=== PATIENT | female | born 1955 | race American Indian/Alaskan Native ===

== ENCOUNTER 2017-05-08 01:09 | Emergency (ER) | payer SELFPAY ==
[2017-05-08 01:10] VITALS: BMI 35.1
[2017-05-08 01:23] VITALS: BP 144/90; PULSE 98; RESP 18; TEMP 98.1; O2SAT 97
[2017-05-08] MEDS ORDERED: Tetanus/Diphtheria Toxoids 0.5 ml Syringe IM ONE ×2 (02:08→02:18)
--- NOTE | 2017-05-08 02:43 | C.PDOC ---
History Of Present Illness 62 year old female who presents to the ER after a piece of the ceiling fell on the right side of her head and right shoulder. Denies LOC, headache, or vomiting. - HPI Time Seen by Provider: 05/08/17 01:47 Chief Complaint (Nursing): Trauma History Per: Patient History/Exam Limitations: no limitations Onset/Duration Of Symptoms: Hrs Injury Occurred (Timing): Just Before Arrival Location Of Injury: Right: Head, Shoulder Recent travel outside of the [place]: No Past Medical History Reviewed: Historical Data, Nursing Documentation, Vital Signs Vital Signs: Last Vital Signs Temp 98.1 F 05/08/17 01:18 Pulse 98 H 05/08/17 01:18 Resp 18 05/08/17 01:18 BP 144/90 05/08/17 01:18 Pulse Ox 97 05/08/17 05:00 - Medical History PMH: Asthma Surgical History: No Surg Hx Family History: States: Unknown Family Hx - Social History Hx Alcohol Use: No Hx Substance Use: No - Immunization History Hx Tetanus Toxoid Vaccination: No Hx Influenza Vaccination: No Hx Pneumococcal Vaccination: No Review Of Systems ENT: Positive for: Ear Pain Gastrointestinal: Negative for: Vomiting Musculoskeletal: Positive for: Shoulder Pain Neurological: Negative for: Weakness, Numbness, Other (LOC) Physical Exam - Physical Exam Appears: Non-toxic Skin: Warm, Dry Head: Atraumatic, Normacephalic Eye(s): bilateral: Normal Inspection, PERRL, EOMI Ear(s): Left: Normal, Right: Other (3 superficial abrasions to external right auricle. No laceration for active bleeding) Nose: Normal, No Tenderness Oral Mucosa: Moist Neck: Normal ROM, No Midline Cervical Tenderness, No Paracervical Tenderness, Supple, Other (Excoriation to right neck) Chest: Symmetrical, No Tenderness Cardiovascular: Rhythm Regular, No Murmur Respiratory: Normal Breath Sounds, No Rales, No Rhonchi, No Wheezing Gastrointestinal/Abdominal: Soft, No Tenderness Extremity: Normal ROM (x4), No Tenderness, No Deformity, No Swelling, Other ( Excoriations to right forearm) Extremity: Bilateral: Normal Color And Temperature Neurological/Psych: Oriented x3, Normal Speech, Normal Cognition ED Course And Treatment O2 Sat by Pulse Oximetry: 97 (Room air) Pulse Ox Interpretation: Normal Progress Note: Motrin and tetanus vaccination administered. On reevaluation, patient's pain as improved, will discharge home with head injury instructions and to return to the ER if patient has any vomiting, headache, dizziness, change in mental status, or other associated symptoms. Laceration - Laceration Repair Rt auricle Wound Length (In cm): 1.5 combined Description Of Wound: Linear, Clean Wound Cleansed With: Sterile Saline Wound Closure: Skin Glue (dermabond) Wound Complexity: Simple (Pt tolerated well) Disposition Counseled Patient/Family Regarding: Diagnosis, Need For Followup, Rx Given - Disposition Disposition: HOME/ ROUTINE Disposition Time: 02:40 Condition: STABLE Additional Instructions: Please follow up with PMD Take meds as directed Keep right ear dry for 2 days Return to ER if severe headache, dizziness, vomiting, weakness, lethargy or worse Prescriptions: Cyclobenzaprine [Cyclobenzaprine HCl] 10 mg PO HS #7 tab Ibuprofen [Motrin] 600 mg PO Q6H #20 tab Instructions: Contusion in Adults (ED), Skin Adhesive Care (ED) Forms: [employer] (Vietnamese) Print Language: MONEGASQUE - Clinical Impression Clinical Impression: Abrasion of right ear, Contusion - Scribe Statement The provider has reviewed the documentation as recorded by the Scribjenna Shukla All medical record entries made by the Ericaibe were at my direction and personally dictated by me. I have reviewed the chart and agree that the record accurately reflects my personal performance of the history, physical exam, medical decision making, and the department course for this patient. I have also personally directed, reviewed, and agree with the discharge instructions and disposition.
== END 2017-05-08 03:03 | disposition home or self-care (01) ==
LOC: C.ER 01:09
DX: S00.431A Contusion of right ear, initial encounter (principal); W22.8XXA Striking against or struck by other objects, initial encounter; Y93.9 Activity, unspecified; Y92.009 Unspecified place in unspecified non-institutional (private) residence as the place of occurrence of the external cause; Z23 Encounter for immunization

== ENCOUNTER 2017-06-04 20:45 | Emergency (ER) | payer SELFPAY ==
[2017-06-04 20:45] VITALS: BMI 35.1
[2017-06-04 21:03] VITALS: RESP 20; O2SAT 98
[2017-06-04] MEDS ORDERED: Sodium Chloride 0.9% 1,000 ML IV ONE (21:18)
[2017-06-04] MEDS ORDERED: Sodium Chloride 0.9% 1,000 ML ONE (21:30)
[2017-06-04 21:36] LABS: BASO # 0.1 K/uL (0.0-0.2); BASO % 1.4 % (0.0-2.0); EOS # 0.2 K/uL (0.0-0.7); EOS % 4.5 % (0.0-4.0); LYMPH # 2.8 K/uL (1.0-4.3); LYMPH % 53.5 % (20.0-40.0); MEAN CORPUSCULAR HEMOGLOBIN 31.4 pg (27.0-31.0); MEAN CORPUSCULAR HGB CONC 33.4 g/dL (33.0-37.0); MEAN PLATELET VOLUME 7.7 fL (7.2-11.7); MONO # 0.6 K/uL (0.0-0.8); MONO % 11.2 % (0.0-10.0); NRBC % 0.2 % (0.0-2.0); RED CELL DISTRIBUTION WIDTH 14.5 % (11.5-14.5); WHITE BLOOD COUNT 5.3 K/uL (4.8-10.8)
[2017-06-04 21:40] LABS: CHLORIDE 101 mmol/L (98-107)
[2017-06-04 21:41] LABS: SODIUM 139 mmol/L (132-148)
[2017-06-04 21:42] LABS: POTASSIUM 4.8 mmol/L (3.6-5.2)
[2017-06-04 21:44] LABS: ALKALINE PHOSPHATASE 83 U/L (38-126); ALT/SGPT 38 U/L (9-52); AST/SGOT 26 U/L (14-36); BILIRUBIN,TOTAL 0.5 mg/dL (0.2-1.3); BLOOD UREA NITROGEN 16 mg/dL (7-17); CARBON DIOXIDE 29 mmol/L (22-30); GFR AFRICAN-AMERICAN > 60; GLUCOSE,RANDOM 96 mg/dL (65-105); TOTAL PROTEIN 7.7 g/dL (6.3-8.3)
[2017-06-04 21:45] LABS: CALCIUM 9.2 mg/dl (8.6-10.4)
[2017-06-04 22:35] LABS: INR 1.1
--- NOTE | 2017-06-04 22:42 | CT ---
EXAM: CT Head Without Intravenous Contrast CLINICAL HISTORY: 62 years old, female; Pain and injury or trauma; Injury Heavy object drops on her head; Initial encounter; Concussion / head injury; Headache; Post-traumatic; Additional info: Persistent headache S/P head injury 2 weeks ago TECHNIQUE: Axial computed tomography images of the head/brain without intravenous contrast. All CT scans at this facility use one or more dose reduction techniques, viz.: automated exposure control; ma/kV adjustment per patient size (including targeted exams where dose is matched to indication; i.e. head); or iterative reconstruction technique. COMPARISON: No relevant prior studies available. FINDINGS: Brain: Minimal atrophy. No intracranial hemorrhage. No mass. Few scattered foci of decreased attenuation within periventricular/subcortical white matter. No edema. Ventricles: No hydrocephalus. Bones/joints: No acute fracture. Soft tissues: Unremarkable. Sinuses: No acute sinusitis. Mastoid air cells: No mastoid effusion. Orbits: Unremarkable as visualized. IMPRESSION: 1. No intracranial hemorrhage. 2. Nonspecific white matter changes.
--- NOTE | 2017-06-04 22:45 | CT ---
EXAM: CT Cervical Spine Without Intravenous Contrast CLINICAL HISTORY: 62 years old, female; Pain and injury or trauma; Injury Heavy object drops on her head; Initial encounter; Concussion /head injury; Neck pain; Additional info: Neck pain S/P head injury 2 weeks ago TECHNIQUE: Axial computed tomography images of the cervical spine without intravenous contrast. All CT scans at this facility use one or more dose reduction techniques, viz.: automated exposure control; ma/kV adjustment per patient size (including targeted exams where dose is matched to indication; i.e. head); or iterative reconstruction technique. Coronal and sagittal reformatted images were created and reviewed. COMPARISON: No relevant prior studies available. FINDINGS: Vertebrae: No acute fracture. Straightening of cervical spine. Facet osteoarthrosis within lower cervical/upper thoracic spine. Discs/spinal canal/neural foramina: Early to mild degenerative disc disease within mid and lower cervical spine. Neuroforaminal narrowing within lower cervical spine. Soft tissues: Unremarkable. Lymph nodes: Probable intraparotid lymph nodes. Lung apices: Unremarkable as visualized. IMPRESSION: 1. No fracture. 2. Incidental/non-acute findings are described above.
[2017-06-04 22:51] VITALS: BP 106/66; PULSE 74; TEMP 97.7
--- NOTE | 2017-06-04 23:09 | C.PDOC ---
Time Seen by Provider: 06/04/17 21:11 Chief Complaint (Nursing): Headache History Per: Patient, Family Onset/Duration Of Symptoms: Days ("a couple of weeks, since a ceiling fell on my head"), Persistent Current Symptoms Are (Timing): Still Present Severity: Moderate Quality: "Pain" Associated Symptoms: Nausea Additional History Per: Prior Records Past Medical History Reviewed: Historical Data, Nursing Documentation, Vital Signs Vital Signs: Last Vital Signs Temp 97.7 F 06/04/17 22:46 Pulse 74 06/04/17 22:46 Resp 20 06/04/17 20:59 BP 106/66 06/04/17 22:46 Pulse Ox 98 06/04/17 22:46 - Medical History PMH: Asthma Family History: States: Unknown Family Hx - Social History Hx Alcohol Use: No Hx Substance Use: No - Immunization History Hx Tetanus Toxoid Vaccination: Yes Hx Influenza Vaccination: Yes Hx Pneumococcal Vaccination: No Review Of Systems Except As Marked, All Systems Reviewed And Found Negative. Constitutional: Negative for: Fever, Weakness Eyes: Negative for: Vision Change Cardiovascular: Negative for: Chest Pain Respiratory: Negative for: Shortness of Breath Gastrointestinal: Negative for: Vomiting, Abdominal Pain Musculoskeletal: Positive for: Neck Pain. Negative for: Back Pain Skin: Negative for: Rash Neurological: Positive for: Headache. Negative for: Weakness, Numbness, Incoordination, Change in Speech, Confusion, Seizures, Altered Mental Status Physical Exam - Physical Exam Appears: Non-toxic, No Acute Distress Skin: Normal Color, Warm, Dry, No Rash Head: Atraumatic, Normacephalic Eye(s): bilateral: Normal Inspection, PERRL, EOMI Neck: Normal ROM, Paracervical Tenderness, No Step Off Deformity, Supple Chest: Symmetrical, No Deformity Cardiovascular: Rhythm Regular Respiratory: Normal Breath Sounds, No Accessory Muscle Use Gastrointestinal/Abdominal: Soft, No Tenderness Back: No CVA Tenderness, No Vertebral Tenderness Extremity: Normal ROM, No Deformity Neurological/Psych: Oriented x3, Normal Motor, Normal Sensation ED Course And Treatment - Laboratory Results Result Diagrams: 06/04/17 21:29 06/04/17 21:29 Lab Interpretation: No Acute Changes O2 Sat by Pulse Oximetry: 98 Pulse Ox Interpretation: Normal - CT Scan/US CT head Other Rad Studies (CT/US): Read By Radiologist, Radiology Report Reviewed CT/US Interpretation: IMPRESSION: 1. No intracranial hemorrhage. 2. Nonspecific white matter changes. CT C-spine Other Rad Studies (CT/US): Read By Radiologist, Radiology Report Reviewed CT/US Interpretation: IMPRESSION: 1. No fracture. 2. Incidental/non-acute findings are described above. Progress Note: Pt feels much better and wants to go home. Reassessment Condition: Improved Progress - Interventions Interventions:: Observation, Intravenous fluid - Medications Administered Intravenous: Antiemetic, NSAID - Data Reviewed Data Reviewed: Lab, Diagnostic imaging, Old records - Patient Status Patient status: Mostly improved - Continuity of Care Discussed patient case with:: Patient, Family-HIPPA compliant, ED Nurse - Patient Plan Patient Plan: Discharge, F/U with PCP, Continue present meds Disposition Counseled Patient/Family Regarding: Studies Performed, Diagnosis, Need For Followup, Rx Given - Disposition Referrals: Omar Torres MD [Staff Provider] - Disposition: HOME/ ROUTINE Disposition Time: 23:11 Condition: IMPROVED Additional Instructions: Follow up with your doctor for further evaluation and treatment. Return to the ER if you develop weakness, numbness, vomiting, worsening of symptoms or if you have any other concerns. Prescriptions: Acetaminophen/Butalbital/Caf [Fioricet] 1 tab PO TID PRN #20 tab PRN Reason: Headache Instructions: General Headache (ED) Forms: [employer] (Latvian) Print Language: HAITIAN - Clinical Impression Clinical Impression: Headache
== END 2017-06-04 23:27 | disposition home or self-care (01) ==
LOC: C.ER 20:45
DX: R51 Headache (principal)
CPT/HCPCS: 70450; 72125; 80053; 85025; 85610; 85730; 96374; 96375; 99284; J1885; J2765; J7040